=== PATIENT | female | born 1955 | race Hispanic/Latino ===

== ENCOUNTER → 2018-11-11 | Outpatient (CLI) | payer OTHER ==
--- NOTE | 2018-11-11 16:29 | Diagnostic Imaging Report ---
Exam: Bone mineral density study. History: OSTEOPOROSIS Comparison: None available. Discussion: Evaluation of the left hip and lumbar spine was performed. The study is technically adequate. The patient's fracture risk is compared to an age-matched control. The patient denies prior surgery/fracture of the spine, hips or forearm. Left hip femoral neck bone mineral density: 0.6 g/cm2, T-score is -2, Z-score is -0.6. Left hip total bone mineral density: 0.7 g/cm2, T-score is -1.8, Z-score is -0.8. Lumbar spine total bone mineral density: 0.8 g/cm2, T-score is -2.2, Z-score is -0.6. Impression: 1. Bone mineralization by WHO Classification is low bone mass/osteopenia, the fracture risk is increased. 2. The FRAX 10-year probability of major osteoporotic fracture is 5.2% and hip fracture is 0.6%. These probabilities assume the patient is untreated. Signed by: Dr. Deep Martinez D.O., M.M.M. on 11/11/2018 4:26 PM
== END ==
LOC: MAMMO 14:17
PROVIDERS: ATTEND Family Medicine
DX: Z12.31 Encounter for screening mammogram for malignant neoplasm of breast (principal); M81.0 Age-related osteoporosis without current pathological fracture
CPT/HCPCS: 77067; 77080

== ENCOUNTER → 2021-04-27 | Outpatient (CLI) | payer MEDICARE | LOC: DX 08:52 | PROVIDERS: ATTEND Internal Medicine | DX: M85.88 Other specified disorders of bone density and structure, other site (principal) | CPT/HCPCS: 77080 ==